=== PATIENT | female | born 1970 | race Caucasian/White ===

== ENCOUNTER 2019-08-20 11:43 | Emergency (ER) | payer OTHER, SELFPAY ==
--- NOTE | 2019-08-20 11:52 | ED.URI ---
HPI - URI/Sore Throat General Chief Complaint: Nausea/Vomiting/Diarrhea Stated Complaint: vomiting/fever Time Seen by Provider: 08/20/19 11:53 Source: patient and RN notes reviewed History of Present Illness HPI Narrative: Patient is a 48-year-old female presents the urgent care with complaints of fever, nausea, vomiting, body aches, chills. Patient states she also has a scratchy throat. Denies any congestion or cough. 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 Patient is also been using Mucinex cold and sinus with Tylenol. Denies of any abdominal pain or urinary symptoms. No other acute complaints. No acute distress noted. Patient read the plan of care. Related Data Home Medications Medication Instructions Recorded Confirmed alprazolam 1 mg PO DAILY 08/20/19 08/20/19 liraglutide [Victoza 3-Mian] 1 mg SUBCUT DAILY 08/20/19 08/20/19 Allergies Allergy/AdvReac Type Severity Reaction Status Date / Time codeine Allergy Severe N/V Unverified 08/20/19 11:53 morphine Allergy Intermediate HIVES Verified 08/20/19 11:53 erythromycin base Allergy Mild Hives Unverified 08/20/19 11:53 MACROLIDES Allergy Mild SEVERE Uncoded 08/20/19 11:53 SWELLING, VOMITING Review of Systems Review of Systems: Narrative: CONSTITUTIONAL: Reports a fever, chills, sweats EYES: Denies visual changes, redness, or discharge. ENT: Reports a scratchy throat CARDIOVASCULAR: Denies chest pain, palpitations, or edema. RESPIRATORY: Denies cough or dyspnea. GASTROINTESTINAL: Reports of nausea and vomiting without diarrhea or abdominal pain GENITOURINARY: Denies dysuria or hematuria. SKIN: Denies rash or itching. MUSCULOSKELETAL: Denies back pain, joint pain; reports of body aches NEUROLOGIC: Denies headache, numbness, or weakness. All other systems reviewed are negative, except as documented in HPI. PMFSH Comments At the time of my signature, I reviewed and agree with the nursing past medical, surgical, social, and family history. There is no relevant family history pertinent to the patient complaint. Exam Narrative: Exam Narrative: GENERAL: This is a well-nourished, well-developed patient, in no apparent distress. HEAD: normocephalic, atraumatic. EYES: PERRL. Sclera clear/white. Vision is grossly intact. EARS: External ears normal, auditory canals clear and without drainage, TMs normal without perforation. Hearing grossly intact. NOSE: External nose normal with no obvious nasal discharge, nares without redness, no rhinorrhea. THROAT: Mucous membranes moist, posterior pharynx clear. Mild erythema noted posterior oropharynx NECK: Neck supple, non-tender without lymphadenopathy CARDIOVASCULAR: Regular rate and rhythm without murmurs, gallops, or rubs. RESPIRATORY: Clear to auscultation. Breath sounds equal bilaterally. No wheezes, rales, or rhonchi. GASTROINTESTINAL: Abdomen soft, non-tender, nondistended. Bowel sounds are active. SKIN: warm, intact with no suspicious lesions or rash, good texture and turgor. NEURO: awake, alert, and oriented to person, place and time. There were no obvious focal neurologic abnormalities. EXTREMITIES: No clubbing, cyanosis, or edema. Course Vital Signs Vital signs: Vital Signs Temperature 98.5 F 08/20/19 11:54 Pulse Rate 93 08/20/19 11:54 Respiratory Rate 08/20/19 11:54 Blood Pressure 146/93 H 08/20/19 11:54 Pulse Oximetry 100 08/20/19 11:54 Temperature 98.5 F 08/20/19 11:54 Pulse Rate 93 08/20/19 11:54 Respiratory Rate 08/20/19 11:54 Blood Pressure 146/93 H 08/20/19 11:54 Pulse Oximetry 100 08/20/19 11:54 Reviewed?patient is informed that they may have pre-hypertension or hypertension based on a blood pressure reading in the department. I recommend the patient call the primary care provider listed on their discharge instructions or a physician of their choice this week to arrange follow-up for further evaluation of possi
[2019-08-20 11:54] VITALS: BP 146/93; PULSE 93; RESP 20; TEMP 36.9; O2SAT 100
== END 2019-08-20 12:35 | disposition home or self-care (01) ==
PROVIDERS: Emergency Provider Nurse Practitioner Family; PCP Emergency Medicine
DX: R11.0 Nausea (principal); F41.9 Anxiety disorder, unspecified
CPT/HCPCS: 87081; 87804; 87880; 99213; G0463

== ENCOUNTER 2021-06-14 10:57 | Emergency (ER) | payer OTHER, SELFPAY ==
[2021-06-14 11:05] VITALS: BP 127/84; PULSE 93; RESP 16; TEMP 36.8; O2SAT 100
--- NOTE | 2021-06-14 11:17 | ED.URI ---
HPI - URI/Sore Throat General Chief Complaint: Upper Respiratory Infection Stated Complaint: Flu Sx Time Seen by Provider: 06/14/21 11:18 Source: patient and RN notes reviewed Mode of arrival: ambulatory Limitations: no limitations History of Present Illness HPI Narrative: 50-year-old female presents with concern for low-grade fever, cough, sore throat, nasal congestion, body aches area that started yesterday. She reports she was vaccinated for Covid in October 2020. She reports taking multiple [id number] medications without relief. She denies shortness of breath MD elicited complaint: cough and sore throat Related Data Home Medications Medication Instructions Recorded Confirmed alprazolam 1 mg PO DAILY 08/20/19 02/03/20 calcium carbonate 200 mg calcium 200 mg PO BID PRN 02/01/20 02/03/20 (500 mg) chewable tablet Allergies Allergy/AdvReac Type Severity Reaction Status Date / Time codeine Allergy Severe N/V Unverified 02/02/20 08:16 morphine Allergy Intermediate HIVES Verified 02/02/20 08:16 erythromycin base Allergy Mild Hives Unverified 02/02/20 08:16 MACROLIDES Allergy Mild SEVERE Uncoded 02/02/20 08:16 SWELLING, VOMITING Review of Systems Review of Systems: CONSTITUTIONAL: Reports malaise, chills, fever. EYES: Denies visual changes, redness, or discharge. ENT: Reports rhinorrhea, congestion, sore throat. Denies sinus pain, otalgia CARDIOVASCULAR: Denies chest pain, palpitations, or edema. RESPIRATORY: Reports cough. Denies dyspnea. GASTROINTESTINAL: Denies abdominal pain, nausea, vomiting, diarrhea SKIN: Denies rash or itching. MUSCULOSKELETAL: Reports myalgia. NEUROLOGIC: Denies headache. All systems reviewed & are unremarkable except as noted in HPI and below PMFSH Past Medical History Medical History (Updated 06/14/21 @ 11:39 by Saima Parra NP) Anxiety Depression GERD (gastroesophageal reflux disease) Surgical History Surgical History History of partial hysterectomy Hx of lumpectomy Benign Family History Family History Father Hypertension Mother Hypothyroidism Sibling Hypothyroidism Social History Social History (Reviewed 02/02/20 @ 08:17 by Destiny Bustos [facility]) Smoking packs per day: 0.25 Smoking cigarettes per day: 5.0 Smoking status: Current every day smoker Tobacco type: e-cigarettes/vaping Alcohol intake: current Alcohol use details: Social alcohol use Additional occupation/education comments: Lab Asst Comments At time of signature, agree with nursing past medical, surgical, social and family history. There is no relevant family history pertinent to the presenting complaint Exam Narrative: GENERAL: Nontoxic-appearing, well-nourished, and in no acute distress. HEAD: Normocephalic EYES: PERRLA, conjunctivae clear ENT: Nares clear, turbinates erythematous, clear discharge. Mucous membranes moist. TM pearly peralta with sharp light reflex bilaterally; no tragal tenderness. Oropharynx not erythematous without lesions. Tonsils not enlarged and without exudate, no drooling, no hoarseness, no trismus, uvula midline. NECK: Supple. No lymphadenopathy CHEST: Clear to auscultation, breath sounds equal. No wheezing, rhonchi, rales, or stridor. No respiratory distress, speaks in full sentences. HEART: Regular rate and rhythm. No murmur heard. SKIN: Warm, dry, no rash. NEURO: Alert and oriented x3. PSYCH: Normal mood and affect Course Course Emergency Course: Patient is aware of diagnosis, understands and agrees to treatment plan. Anticipatory guidance given. Patient agrees to follow-up as directed and is aware of reasons to seek care at the emergency department. Portions of this record may have been created with voice recognition software Level of Care: Express Care Visit Vital Signs Vital signs: Vital Signs Temperature 98.3 F
== END 2021-06-14 11:45 | disposition home or self-care (01) ==
PROVIDERS: Emergency Provider Nurse Practitioner; PCP Emergency Medicine
DX: U07.1 COVID-19 (principal); F17.290 Nicotine dependence, other tobacco product, uncomplicated; F41.9 Anxiety disorder, unspecified; F32.9 Major depressive disorder, single episode, unspecified; K21.9 Gastro-esophageal reflux disease without esophagitis; Z90.711 Acquired absence of uterus with remaining cervical stump
CPT/HCPCS: 87081; 87426; 87880; 99213; C9803; G0463